=== PATIENT | female | born 1970 | race Hispanic/Latino ===

== ENCOUNTER 2018-04-20 16:09 | Emergency (ER) | payer MEDICAID, OTHER | END 2018-04-20 17:22 | disposition home or self-care (01) | LOC: EDH 16:09 | DX: M65.9 Synovitis and tenosynovitis, unspecified (principal); I10 Essential (primary) hypertension; E11.9 Type 2 diabetes mellitus without complications; Z90.710 Acquired absence of both cervix and uterus | CPT/HCPCS: 99281 ==

== ENCOUNTER 2019-04-02 20:40 | Emergency (ER) | payer SELFPAY ==
[2019-04-02 21:21] LABS: BASOPHILS % (AUTO) 0.3 % (0.0-5.0); EOSINOPHILS % (AUTO) 0.5 % (0.0-8.0); HEMATOCRIT 41.1 % (36-48); LYMPHOCYTES % (AUTO) 25.3 % (21.0-51.0); MEAN CORPUSCULAR HEMOGLOBIN 28.3 pg (27.0-33.0); MEAN CORPUSCULAR HGB CONC 33.4 g/dL (32.0-36.0); MEAN CORPUSCULAR VOLUME 84.9 fL (79-99); MONOCYTES % (AUTO) 6.9 % (3.0-13.0); PLATELET COUNT (AUTO) 270 K/uL (130-400); RED BLOOD CELL COUNT(AUTO) 4.85 MIL/uL (4.00-5.50); RED CELL DISTRIBUTION WIDTH 14.6 % (11.0-15.5); WHITE BLOOD COUNT (AUTO) 9.5 K/uL (4.8-10.8)
[2019-04-02 21:31] LABS: CREATININE 0.8 mg/dL (0.5-1.5); POTASSIUM 3.7 mmol/L (3.5-5.1)
[2019-04-02 21:32] LABS: APPEARANCE,URINE Clear (CLEAR); BILIRUBIN,URINE Negative (NEGATIVE); COLOR,URINE Yellow (YELLOW); GLUCOSE, URINE (UA) Negative (NEGATIVE); KETONES,URINE Negative (NEGATIVE); LEUKOCYTE ESTERASE ,URINE Negative (NEGATIVE); NITRATE,URINE Negative (NEGATIVE); OCCULT BLOOD,URINE Moderate (NEGATIVE); PH,URINE 6.5 (5.0-8.0); PROTEIN,URINE Negative (NEGATIVE)
[2019-04-02 21:36] LABS: ALBUMIN 3.4 g/dL (3.5-5.0); BILIRUBIN,TOTAL 0.4 mg/dL (0.2-1.0); TOTAL PROTEIN, SERUM 7.7 g/dL (6.0-8.3)
[2019-04-02 21:40] LABS: WBC,URINE 0-1 /HPF (0-1)
[2019-04-02 21:41] LABS: BACTERIA,URINE Rare /HPF (None Seen); SQUAMOUS EPITHELIAL CELL,UR Rare /HPF (0-2)
== END 2019-04-02 22:28 | disposition home or self-care (01) ==
LOC: EDH 20:40
DX: I10 Essential (primary) hypertension (principal); R51 Headache; E11.9 Type 2 diabetes mellitus without complications; Z90.710 Acquired absence of both cervix and uterus
CPT/HCPCS: 36415; 70450; 80053; 81001; 85025